=== PATIENT | male | born 1930 | race Caucasian/White ===

== ENCOUNTER → 2017-02-27 | Outpatient (CLI) | payer OTHER, BC ==
[~2017-02-27] MED LIST: ASPCH81X PO; ATOR80TA PO; CHOL1TAB2 PO; CMD1 PO; CMD5 PO; DUTA0.5C PO; HYDR12.55 PO; LEVO175T3 PO; LORA-741 PO; MELA3CAP PO; OMEP20CA9 PO; ROPI1TAB PO; SILO8CAP PO; TRAZ50TA35 PO; VALS320T PO
--- NOTE | 2017-02-27 16:23 | DIAGNOSTIC IMAGING REPORT ---
Venous Doppler left leg LEFT VENOUS DOPP LOWER EXT UNILAT CLINICAL HISTORY: L LEG/FOOT RED/SWOLLEN/SORE, R/O DVT TECHNIQUE: Venous Doppler COMPARISON STUDY: None FINDINGS: Normal study IMPRESSION: Normal study Electronically signed by: Yonis Arzate M.D. 02/27/2017 4:21 PM Dictated Date/Time: 02/27/2017 4:21 PM
--- NOTE | 2017-03-22 06:51 | CODING QUERY MEDICAL NECESSITY ---
SUPPORTING DIAGNOSIS NEEDED A supporting diagnosis is required for the test/procedure performed on this patient in order for us to be reimbursed by the patient's insurance. Please provide a supporting diagnosis for the following test/procedure listed below next to the test name along with your signature. *If there is no additional diagnosis for this patient that would support the following test/procedure please document that below next to the test/procedure. Test(s)/Procedure(s) that require a supporting diagnosis: * US VENOUS UNIL LWR EXT DOPPLER DIAGNOSIS: Provider Signature: Date: Thank you Elvira Mclean [employer] Once completed, please kindly fax back to [phone] For questions please call [phone]
== END | disposition home or self-care (01) ==
LOC: C.ULTR 15:39
PROVIDERS: ATTEND Podiatrist Foot & Ankle Surgery
DX: M79.89 Other specified soft tissue disorders (principal); I82.492 Acute embolism and thrombosis of other specified deep vein of left lower extremity

== ENCOUNTER 2017-10-09 07:55 | Emergency (ER) | payer OTHER, BC ==
[~2017-10-09] VITALS: Ht 172.7 cm; Wt 86.8 kg
[2017-10-09 07:57] VITALS: TEMP 36.6; Ht 172.7 cm; Wt 86.8 kg
[2017-10-09] MEDS ORDERED: HYDROCODONE/ACETAMIN 5/325MG TAB PO STA (08:33)
--- NOTE | 2017-10-09 08:36 | EMERGENCY ROOM VISIT NOTE ---
History Report prepared by Manav: Nilsa Mayo Under the Supervision of: Dr. Kelley Fontanez M.D. First contact with patient: 08:09 Chief Complaint: HIP PAIN Stated Complaint: PAIN IN LEFT HIP History of Present Illness The patient is a 86 year old male who presents to the Emergency Room with complaints of constant left hip pain beginning three days ago. The patient reports he has been unable to sleep because his pain is so severe. He states his pain worsens when he moves his hip. He denies any recent injuries. The patient states he recently had the flu. He denies any urinary or bowel incontinence. The patient has a history of spinal stenosis and a pacemaker. He reports he gets steroid injections in his back. Source of History: patient Onset: three days ago Position: other (left hip) Quality: other (pain) Timing: constant Modifying Factors (Worsening): movement Associated Symptoms: No urinary symptoms Review of Systems See HPI for pertinent positives & negatives. A total of 10 systems reviewed and were otherwise negative. Past Medical & Surgical Medical Problems: (1) Aneurysm (2) High blood pressure (3) Pacemaker Family History FHx: cancer Hypertension Social History Smoking Status: Never Smoker Alcohol Use: none Drug Use: none Marital Status: Housing Status: unknown Occupation Status: retired Current/Historical Medications Scheduled Aspirin (Aspirin Chewable), 81 MG PO QAM Cholecalciferol (Vitamin D-3), 1,000 INTER.UNIT PO QAM Dutasteride (Avodart), 0.5 MG PO QAM Hydrochlorothiazide (Hydrochlorothiazide), 1 TAB PO QAM Levothyroxine Sodium (Levothyroxine Sodium), 1 TAB PO QAM Melatonin (Melatonin), 1-3 CAP PO HS Omeprazole (Prilosec), 20 MG PO QAM Ropinirole (Requip), 1 MG PO HS Silodosin (Rapaflo), 8 MG PO HS Valsartan (Diovan), 320 MG PO QPM Warfarin Sod (Coumadin), 1 MG PO QAM Warfarin Sod (Coumadin), 5 MG PO QAM Scheduled PRN Hydrocodone/Acetaminophen 5MG/325MG (Mildred 5MG/325MG), 1 TABLET PO Q6 PRN for Pain Allergies Coded Allergies: Lisinopril (Verified Allergy, Mild, COUGH, 10/09/17) Physical Exam Vital Signs Date Time Temp Pulse Resp B/P (MAP) Pulse Ox O2 Delivery O2 Flow Rate FiO2 10/09/17 12:10 72 20 203/92 94 Room Air 10/09/17 10:10 73 18 160/86 94 10/09/17 07:57 36.6 80 18 139/70 94 Physical Exam Vital signs reviewed. General: Well-appearing male, in no significant distress. Musculoskeletal: Atraumatic, no peripheral edema. Tenderness to external rotation of left hip, positive straight leg raise, mild tenderness to left lower paraspinous muscles, no tenderness to palpation of lumbar spine. Able to bear weight. Neurologic: Patient awake alert and oriented x 3, full strength in all 4 extremities. Ambulates without difficulty. Skin: Warm, dry, no rash Medical Decision & Procedures ER Provider Diagnostic Interpretation: Radiology results as stated below per my review and radiologist interpretation: L HIP UNILATERAL 2 VIEWS FINDINGS: Mild degenerative changes of the left hip without acute fracture or dislocation. Imaged left hemipelvis also appears intact. Degenerative changes are seen within the left SI joint. Vascular calcifications are noted. Soft tissues are unremarkable. IMPRESSION: Mild degenerative changes of the left hip without acute fracture or dislocation. The above report was generated using voice recognition software. It may contain grammatical, syntax or spelling errors. Electronically signed by: Burke Ferro M.D. L-SPINE MIN 4 VIEWS ROUTINE FINDINGS: There is no fracture. Moderate rotational scoliosis. Moderate degenerative disc change. Vertebral body stature is unremarkable. IMPRESSION: Degenerative change. Scoliosis. No acute process. The above report was generated using voice recognition software. It may contain grammatical, syntax or spelling errors. Electronically signed by: Yonis Arzate M.D. Medications Administered Medications (Trade) Dose Ordered Sig/Kvng Route Start Time Stop Time Status Last Admin Dose Admin Acetaminophen/ Hydrocodone Bitart (Mildred 5/325 Tab) 1 tab NOW STAT PO 10/09/17 08:33 10/09/17 08:36 DC 10/09/17 08:51 1 TAB ED Course 0827: Past medical records reviewed. The patient was evaluated in room A9B. A complete history and physical examination was performed. 0833: Ordered Mildred 5/325 Tab 1 tab PO. 1217: I updated the patient on his test results. 1246: Upon reevaluation, the patient appeared to have improvement of his symptoms. I discussed findings with him. He verbalized agreement of the treatment plan. The patient was discharged home. Medical Decision Differential diagnosis: Etiologies such as fracture, dislocation, neurovascular compromise, compartment syndrome, soft tissue injury, spinal stenosis, radiculopathy, as well as others were entertained. This patient was evaluated and appeared to be in no significant distress. Patient's physical exam is consistent with musculoskeletal pain. X-rays were obtained and reveal degenerative changes but no acute fracture or dislocation. The patient is ambulatory without significant discomfort. He does feel improved after one Mildred tablet. The results of the x-rays were discussed with the patient. He feels comfortable taking Mildred. He was advised that this may cause constipation he will need to begin a stool softener if he ends to take this on a regular basis. Patient will attempt to use Tylenol during the day with a Mildred night to sleep. He'll follow-up with his primary care physician for reevaluation and pain management for further management. He will return to the ER for worsening of symptoms or any medical concerns Medication Reconcilliation Current Medication List: was personally reviewed by me Blood Pressure Screening Patient's blood pressure: Elevated blood pressure Blood pressure disposition: Referred to PCP Impression Primary Impression: Lumbar radiculopathy Scribe Attestation The scribe's documentation has been prepared under my direction and personally reviewed by me in its entirety. I confirm that the note above accurately reflects all work, treatment, procedures, and medical decision making performed by me. Departure Information Dispostion Home / Self-Care Prescriptions Hydrocodone/Acetaminophen 5MG/325MG (Mildred 5MG/325MG) Tab 1 TABLET PO Q6 Y for Pain, #20 TAB Prov: Kelley Fontanez M.D. 10/09/17 Referrals Chase Capellan M.D. (PCP) Forms HOME CARE DOCUMENTATION FORM, IMPORTANT VISIT INFORMATION, WORK / SCHOOL INSTRUCTIONS Patient Instructions My [facility] Additional Instructions Diagnosis: Lumbar radiculopathy Mildred one tablet every 6 hours as needed for severe pain. Do not drive or take Tylenol within 6 hours of this medication. You may use Tylenol 650 mg every 6 hours as needed for pain during the day. Follow-up with your physician this week for reevaluation. Consider consultation with Dr. Sam for reevaluation. Return to the ER for worsening of symptoms or any medical concerns.
--- NOTE | 2017-10-09 09:20 | DIAGNOSTIC IMAGING REPORT ---
L-SPINE MIN 4 VIEWS ROUTINE HISTORY: Pain. Radiculopathy. low back pain, L hip/buttocks COMPARISON: None. FINDINGS: There is no fracture. Moderate rotational scoliosis. Moderate degenerative disc change. Vertebral body stature is unremarkable. IMPRESSION: Degenerative change. Scoliosis. No acute process. The above report was generated using voice recognition software. It may contain grammatical, syntax or spelling errors. Electronically signed by: Yonis Arzate M.D. 10/09/2017 9:19 AM Dictated Date/Time: 10/09/2017 9:18 AM
--- NOTE | 2017-10-09 09:20 | DIAGNOSTIC IMAGING REPORT ---
L HIP UNILATERAL 2 VIEWS HISTORY: 86 years-old Male L hip pain acute left hip and back pain COMPARISON: Left hip radiographs 08/03/2016 TECHNIQUE: 2 views of the left hip FINDINGS: Mild degenerative changes of the left hip without acute fracture or dislocation. Imaged left hemipelvis also appears intact. Degenerative changes are seen within the left SI joint. Vascular calcifications are noted. Soft tissues are unremarkable. IMPRESSION: Mild degenerative changes of the left hip without acute fracture or dislocation. The above report was generated using voice recognition software. It may contain grammatical, syntax or spelling errors. Electronically signed by: Burke Ferro M.D. 10/09/2017 9:19 AM Dictated Date/Time: 10/09/2017 9:17 AM
[2017-10-09 12:10] VITALS: BP 203/92; PULSE 72; O2SAT 94
[2017-10-09] MEDS ORDERED: HYDR-5688 PO (12:32)
== END 2017-10-09 12:40 | disposition home or self-care (01) ==
LOC: C.EDB 07:58 → C.EDA 12:40
DX: M54.16 Radiculopathy, lumbar region (principal); Z95.0 Presence of cardiac pacemaker; Z80.9 Family history of malignant neoplasm, unspecified; Z82.49 Family history of ischemic heart disease and other diseases of the circulatory system; Z79.82 Long term (current) use of aspirin; Z79.01 Long term (current) use of anticoagulants; Z79.899 Other long term (current) drug therapy